=== PATIENT | female | born 1965 | race Caucasian/White ===

== ENCOUNTER 2019-11-07 07:18 | Outpatient (REF) | payer OTHER, SELFPAY | END 2019-11-07 07:19 | disposition home or self-care (01) | LOC: HO.LAB 07:18 | PROVIDERS: Visit Provider Internal Medicine | DX: Z20.828 Contact with and (suspected) exposure to other viral communicable diseases (principal) | CPT/HCPCS: 36415; 87635 ==

== ENCOUNTER 2019-12-24 07:18 | Outpatient (REF) | payer OTHER, SELFPAY | END 2019-12-24 07:19 | disposition home or self-care (01) | LOC: HO.LAB 07:18 | PROVIDERS: Visit Provider Internal Medicine | DX: Z20.828 Contact with and (suspected) exposure to other viral communicable diseases (principal) | CPT/HCPCS: C9803; U0003 ==